=== PATIENT | female | born 1940 | race Caucasian/White ===

== ENCOUNTER → 2017-10-15 | Outpatient (CLI) | payer OTHER ==
[~2017-10-15] MED LIST: ALBU90OI6 INH; ALBU90OI61 INH; ALPR.5 PO; AMLO5 PO; ASPI81EC PO; Ativan0.5 MG PO; BACL10; BUPR150T2 PO; Budeprion Xl300 MG PO; CARAC 0.5% TOP; CARV3.125 PO; CIPRSO RIGHTEYE; CITA20 PO; CLON.2 PO; CYAN1000I IM; DOXA1 PO; Diclofenac Sod2.5 ML RIGHTEYE; ERGO50000 PO; ERYT.5TO RIGHTEYE; FLUSAL1005 IH; FLUT44OIA INH; FURO20 PO; GABA100 PO; HYDACE5 PO; HYDCHL12.5 PO; LISHYD2012 PO; LISI20 PO; LORA.5 PO; METF500 PO; METO50ER PO; NAPR220 PO; NIFE30ER PO; Norvasc5 MG PO; OMEP20ER PO; PRAM.125 PO; PRAM.5 PO; PRED1SU RIGHTEYE; TRAZ100 PO; TRIA80TC TOP; [UNRECOGNIZED DRUG - OTHER] PO
== END | disposition home or self-care (01) ==
LOC: LAB 17:26 → LAB SHORT 17:26
DX: R10.2 Pelvic and perineal pain (principal)
CPT/HCPCS: 87077; 87086; 87186

== ENCOUNTER → 2018-10-12 | Outpatient (CLI) | payer OTHER | LOC: PLD 08:15 → LAB SHORT 08:15 | DX: L57.0 Actinic keratosis (principal) | CPT/HCPCS: 88305 ==

== ENCOUNTER → 2019-01-08 | Outpatient (CLI) | payer OTHER | END | disposition home or self-care (01) | LOC: LAB EV 17:23 → LAB SHORT 17:23 | DX: N39.0 Urinary tract infection, site not specified (principal) | CPT/HCPCS: 87086 ==

== ENCOUNTER → 2020-04-25 | Outpatient (CLI) | payer MEDICARE ==
[~2020-04-25] MED LIST changes: +CHLO25B PO; +PANT20 PO
== END ==
LOC: LAB SHORT 15:00 → LAB SRC 15:00
DX: R30.0 Dysuria (principal)
CPT/HCPCS: 87077; 87086; 87186

== ENCOUNTER 2020-05-11 14:38 | Emergency (ER) | payer MEDICARE ==
[~2020-05-11] VITALS: Ht 157.5 cm; Wt 44.9 kg
[~2020-05-11 14:38] MED LIST changes: -CHLO25B PO; -PANT20 PO
[2020-05-11 15:32] LABS: BASOPHILS ABSOLUTE AUTO 0.04 K/mm3 (0.00-0.23); BASOPHILS PERCENT AUTO 1 % (0-2); EOSINOPHILS ABSOLUTE AUTO 0.18 K/mm3 (0.00-0.68); EOSINOPHILS PERCENT AUTO 2 % (0-6); Hematocrit 38.8 % (33.0-51.0); Hemoglobin 13.6 g/dL (11.5-16.0); IMMATURE GRAN ABSOLUTE AUTO 0.01 K/mm3 (0.00-0.10); IMMATURE GRAN PERCENT AUTO 0 % (0-1); LYMPHOCYTES ABSOLUTE AUTO 2.16 K/mm3 (0.84-5.20); LYMPHOCYTES PERCENT AUTO 29 % (21-46); MONOCYTES ABSOLUTE AUTO 0.56 K/mm3 (0.16-1.47); MONOCYTES PERCENT AUTO 8 % (4-13); Mean Corpuscular HGB 31.3 pg (26.0-34.0); Mean Corpuscular HGB Conc 35.1 g/dL (31.5-36.5); Mean Corpuscular Volume 89 fL (80-100); NEUTROPHILS ABSOLUTE AUTO 4.43 K/mm3 (1.96-9.15); NEUTROPHILS PERCENT AUTO 60 % (41-73); Platelet Count 317 K/mm3 (150-400); RDW Coefficient Variation 11.6 % (11.7-14.2); RDW Standard Deviation 38.2 fL (35.1-46.3); Red Blood Cell Count 4.34 M/mm3 (3.80-5.20); White Blood Cell Count 7.38 K/mm3 (4.00-11.30)
[2020-05-11 15:52] LABS: Alanine Aminotransfer (ALT/SGP 27 U/L (12-78); Albumin, Blood 3.9 g/dL (3.4-5.0); Albumin/Globulin Ratio 0.9 (0.8-1.8); Alk Phos 99 U/L (50-136); Anion Gap 6 mmol/L (6-16); Aspartate Aminotrans (AST/SGOT 21 U/L (12-37); Bilirubin, Total 0.7 mg/dL (0.1-1.0); Blood Urea Nitrogen 16 mg/dL (8-24); Bun/Creatinine Ratio 24.7 (12.0-20.0); CO2, Blood 28 mmol/L (21-32); Calcium, Blood 9.7 mg/dL (8.5-10.1); Chloride, Blood 95 mmol/L (98-108); Creatinine, Blood 0.65 mg/dL (0.40-1.00); Globulin, Blood 4.3 g/dL (2.2-4.0); Glomerular Filtration Rate >60 (60-); Glucose, Blood 90 mg/dL (70-99); Potassium, Blood 3.7 mmol/L (3.5-5.5); Sodium, Blood 129 mmol/L (136-145); Total Protein, Blood 8.2 g/dL (6.4-8.2); Troponin I <0.015 ng/mL (0.000-0.040)
[2020-05-11 18:30] LABS: Source, Urine Clean Catch
[2020-05-11] MEDS ORDERED: PANT20 PO (18:31)
[2020-05-11] MEDS ORDERED: CHLO25B PO (18:31)
[2020-05-11 18:34] LABS: Appearance, Urine Clear (Clear); Bilirubin, Urine Neg (Neg); Blood, Urine Neg (Neg); Color, Urine Yellow (P-Yellow); Glucose Qualitative, Urine Neg (Neg); Ketones, Urine Neg (Neg); Leukocyte Esterase, Urine 1+ (Neg); Nitrite, Urine Neg (Neg); Protein, Urine Neg (Neg); Urobilinogen, Urine NORM (Normal)
[2020-05-11 18:40] LABS: Bacteria Few /hpf; Red Blood Cells, Urine 0-2 /hpf (0-2); Squamous Epithelial Cells Not Seen /hpf (Few)
== END 2020-05-11 19:33 | disposition home or self-care (01) ==
LOC: ER 14:38
PROVIDERS: Physician Assistant; Student in an Organized Health Care Education/Training Program
DX: S09.90XA Unspecified injury of head, initial encounter (principal); I10 Essential (primary) hypertension; J44.9 Chronic obstructive pulmonary disease, unspecified; K21.9 Gastro-esophageal reflux disease without esophagitis; Z91.011 Allergy to milk products; Z88.8 Allergy status to other drugs, medicaments and biological substances; Z79.899 Other long term (current) drug therapy; Z87.891 Personal history of nicotine dependence; W18.30XA Fall on same level, unspecified, initial encounter
CPT/HCPCS: 36415; 70450; 71046; 80053; 81001; 84484; 85025; 87086; 93005; 93010; 99284-25

== ENCOUNTER → 2020-12-04 | Outpatient (CLI) | payer MEDICARE ==
[~2020-12-04] MED LIST changes: +CHLO25B PO; +PANT20 PO
[2020-12-04 14:17] LABS: BASOPHILS ABSOLUTE AUTO 0.06 K/mm3 (0.00-0.23); BASOPHILS PERCENT AUTO 1 % (0-2); EOSINOPHILS ABSOLUTE AUTO 0.09 K/mm3 (0.00-0.68); EOSINOPHILS PERCENT AUTO 1 % (0-6); Hematocrit 39.4 % (33.0-51.0); Hemoglobin 14.2 g/dL (11.5-16.0); IMMATURE GRAN ABSOLUTE AUTO 0.02 K/mm3 (0.00-0.10); IMMATURE GRAN PERCENT AUTO 0 % (0-1); LYMPHOCYTES ABSOLUTE AUTO 1.85 K/mm3 (0.84-5.20); LYMPHOCYTES PERCENT AUTO 22 % (21-46); MONOCYTES PERCENT AUTO 7 % (4-13); Mean Corpuscular HGB 32.5 pg (26.0-34.0); Mean Corpuscular Volume 90 fL (80-100); Mean Platelet Volume 8.7 fL (9.1-12.4); NEUTROPHILS ABSOLUTE AUTO 5.83 K/mm3 (1.96-9.15); NEUTROPHILS PERCENT AUTO 69 % (41-73); Platelet Count 370 K/mm3 (150-400); RDW Coefficient Variation 11.6 % (11.7-14.2); Red Blood Cell Count 4.37 M/mm3 (3.80-5.20); White Blood Cell Count 8.45 K/mm3 (4.00-11.30)
[2020-12-04 14:22] LABS: Anion Gap 9 mmol/L (6-16); Blood Urea Nitrogen 15 mg/dL (8-24); Bun/Creatinine Ratio 17.2 (12.0-20.0); CO2, Blood 26 mmol/L (21-32); Calcium, Blood 9.9 mg/dL (8.5-10.1); Chloride, Blood 92 mmol/L (98-108); Creatinine, Blood 0.87 mg/dL (0.40-1.00); Glomerular Filtration Rate >60 (60-); Glucose, Blood 102 mg/dL (70-99); Potassium, Blood 5.2 mmol/L (3.5-5.5); Sodium, Blood 127 mmol/L (136-145)
== END | disposition home or self-care (01) ==
LOC: LAB SHORT 14:12
PROVIDERS: Family Medicine
DX: R10.9 Unspecified abdominal pain (principal)
CPT/HCPCS: 80048; 85025; 87086

== ENCOUNTER → 2020-12-28 | Outpatient (CLI) | payer MEDICARE, OTHER ==
[2020-12-28 18:57] LABS: Source, Urine Clean Catch
[2020-12-28 19:22] LABS: Appearance, Urine Clear (Clear); Bilirubin, Urine Neg (Neg); Blood, Urine Neg (Neg); Color, Urine Yellow (P-Yellow); Glucose Qualitative, Urine Neg (Neg); Ketones, Urine Neg (Neg); Leukocyte Esterase, Urine Neg (Neg); Nitrite, Urine Neg (Neg); Protein, Urine Neg (Neg); Specific Gravity, Urine 1.015 (1.003-1.022); Urobilinogen, Urine NORM (Normal)
== END ==
LOC: LAB SHORT 18:07 → LAB 18:07
PROVIDERS: Nurse Practitioner Family
DX: R07.81 Pleurodynia (principal); R29.898 Other symptoms and signs involving the musculoskeletal system; R35.0 Frequency of micturition
CPT/HCPCS: 81003; 87086

== ENCOUNTER 2021-07-10 09:08 | Inpatient (IN) | payer MEDICARE, OTHER ==
[~2021-07-10] VITALS: Ht 157.5 cm; Wt 61.2 kg
[~2021-07-10 09:08] MED LIST changes: +ALBU90OI INH; +Aspir 8181 MG PO; +IRBE150 PO; +MIRAPEX ER0.75 MG PO; +NITR.4SL SL; +PRED20 PO; +SPIR25 PO; +SULTRIDS PO
[2021-07-10 09:45] LABS: BASOPHILS ABSOLUTE AUTO 0.06 K/mm3 (0.00-0.23); BASOPHILS PERCENT AUTO 1 % (0-2); EOSINOPHILS ABSOLUTE AUTO 0.21 K/mm3 (0.00-0.68); EOSINOPHILS PERCENT AUTO 3 % (0-6); Hematocrit 36.1 % (33.0-51.0); Hemoglobin 12.5 g/dL (11.5-16.0); IMMATURE GRAN ABSOLUTE AUTO 0.02 K/mm3 (0.00-0.10); IMMATURE GRAN PERCENT AUTO 0 % (0-1); LYMPHOCYTES PERCENT AUTO 36 % (21-46); MONOCYTES ABSOLUTE AUTO 0.55 K/mm3 (0.16-1.47); MONOCYTES PERCENT AUTO 9 % (4-13); Mean Corpuscular HGB 30.7 pg (26.0-34.0); Mean Corpuscular HGB Conc 34.6 g/dL (31.5-36.5); Mean Corpuscular Volume 89 fL (80-100); Mean Platelet Volume 8.7 fL (9.1-12.4); NEUTROPHILS ABSOLUTE AUTO 3.05 K/mm3 (1.96-9.15); NEUTROPHILS PERCENT AUTO 50 % (41-73); Platelet Count 323 K/mm3 (150-400); RDW Coefficient Variation 13.8 % (11.7-14.2); RDW Standard Deviation 44.7 fL (35.1-46.3); Red Blood Cell Count 4.07 M/mm3 (3.80-5.20); White Blood Cell Count 6.09 K/mm3 (4.00-11.30)
[2021-07-10 10:05] LABS: Albumin, Blood 3.2 g/dL (3.4-5.0); Albumin/Globulin Ratio 0.8 (0.8-1.8); Bilirubin, Total 0.7 mg/dL (0.1-1.0); Bun/Creatinine Ratio 26.2 (12.0-20.0); Creatinine, Blood 0.57 mg/dL (0.40-1.00); Globulin, Blood 4.1 g/dL (2.2-4.0); Potassium, Blood 5.6 mmol/L (3.5-5.5); Total Protein, Blood 7.3 g/dL (6.4-8.2)
[2021-07-10 14:08] LABS: Source, Urine Clean Catch
[2021-07-10 14:21] LABS: Appearance, Urine Clear (Clear); Bilirubin, Urine Neg (Neg); Blood, Urine Neg (Neg); Glucose Qualitative, Urine Neg (Neg); Ketones, Urine Neg (Neg); Leukocyte Esterase, Urine Neg (Neg); Nitrite, Urine Neg (Neg); Protein, Urine Neg (Neg); Specific Gravity, Urine 1.005 (1.003-1.022); Urobilinogen, Urine NORM (Normal)
[2021-07-10 14:27] LABS: Color, Urine Pale Yellow (P-Yellow)
--- NOTE | 2021-07-10 15:47 | NUR ---
ARRIVAL TO UNIT PT ARRIVED TO UNIT FROM ER VIA [facility], PT ABLE TO TRANSFER SELF FROM [facility] AND AMBULATE TO BATHROOM. AMBULATES WELL WITH MINIMAL WEAKNESS. VITAL SIGNS TAKEN BP ELEVATED, PRN HYDRALAZINE GIVEN. PT REPORTS HIGHLY FLUCUATING BLOOD PRESSURE AT HOME. PHYSICAL THERAPY IN ROOM TO SEE PATIENT. PT REPORTS FEELING FATIGUED BUT OTHERWISE GOOD.
--- NOTE | 2021-07-10 17:31 | NUR ---
NO ACUTE CHANGES SINCE ARRIVAL TO FLOOR. PT AMBULATES WELL TO RESTROOM WITH SBY ASSIST.
--- NOTE | 2021-07-10 18:08 | NUR ---
SHIFT SUMMARY: STUDENT NURSE PT HAVING EPISODES OF DIARRHEA, C/O STOMACH CRAMPS. NO N/V. ABLE TO TRANSFER HERSELF WITH 1 PERSON ASSIST. SHE STATES SHE FEELS WEAK WHEN WALKING. HAD NOT EATEN ANYTHING UNTIL 1600.
[2021-07-10] MEDS ORDERED: NEBIVOLOL HCL2.5 MG PO ×2 (20:56)
[2021-07-10] MEDS ORDERED: ZOLOFT25 MG PO ×2 (20:57)
[2021-07-11 07:42] LABS: Bun/Creatinine Ratio 18.7 (12.0-20.0); Calcium, Blood 8.7 mg/dL (8.5-10.1); Creatinine, Blood 0.59 mg/dL (0.40-1.00); Potassium, Blood 4.3 mmol/L (3.5-5.5)
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
[2021-07-12 05:11] LABS: Bun/Creatinine Ratio 12.2 (12.0-20.0); Calcium, Blood 8.2 mg/dL (8.5-10.1); Creatinine, Blood 0.66 mg/dL (0.40-1.00)
--- NOTE | 2021-07-12 05:16 | NUR ---
SHIFT SUMMARY PATIENT ALERT AND ORIENTED. HAD NO COMPLAINTS OF PAIN OR SHORTNESS OF BREATH. NO ACUTE ISSUES NOTED OVERNIGHT. CALL LIGHT WITHIN REACH. REPORT GIVEN TO ONCOMING RN.
--- NOTE | 2021-07-12 09:24 | NUR ---
pt sitting on the side of the bed eating breakfast, a/ox3, pleasant and cooperative with care, follows commands well, denies pain, when asked if she feels like she's improving she replies they tell me I am, states she is still a bit weak, but is hoping to go home today, lungs are mildly course t/o, resp even and unlabored, she reports a productive occ cough but swallows it, on r/a at this time, but is a home 02 user prn, hrr, tele in place running sr per monitor, see strip, no edema noted, ppp+2, cap refill <3sec, vs stable, afebrile, iv site to lac infusing ns as ordered, site is clear, btx4, abd flat soft nontender, voids without diff, skin c/w/d, maew, bridger, call light in reach.
--- NOTE | 2021-07-12 12:51 | NUR ---
PT HAS BEEN DISCHARGED TO HOME, SHE STATES RIDE WONT BE HERE UNTIL 1400, IV REMOVED INTACT, WENT OVER INSTRUCTIONS WITH HER, SHE VERBALIZED UNDERSTANDING, NO NEW MEDS TO CALL IN. CALL LIGHT IN REACH.
--- NOTE | 2021-07-12 13:45 | NUR ---
Pt ride here, left via wheelchair with admissions rn in attendence, pt has all her belongings.
== END 2021-07-12 16:00 | disposition home health service (06) | DRG 641 ==
LOC: ER 09:08 → MEDS 09:09 → ER 09:09 → MEDS 09:09
PROVIDERS: Emergency Medicine; ADMIT Internal Medicine
DX: E87.1 Hypo-osmolality and hyponatremia (principal); J84.9 Interstitial pulmonary disease, unspecified; J96.11 Chronic respiratory failure with hypoxia; E44.1 Mild protein-calorie malnutrition; E87.5 Hyperkalemia; E87.8 Other disorders of electrolyte and fluid balance, not elsewhere classified; E86.0 Dehydration; I10 Essential (primary) hypertension; R63.4 Abnormal weight loss; R63.0 Anorexia; M79.7 Fibromyalgia; K21.9 Gastro-esophageal reflux disease without esophagitis; G25.81 Restless legs syndrome; J44.9 Chronic obstructive pulmonary disease, unspecified; F41.9 Anxiety disorder, unspecified; Z85.3 Personal history of malignant neoplasm of breast; Z99.81 Dependence on supplemental oxygen; Z79.82 Long term (current) use of aspirin; Z79.51 Long term (current) use of inhaled steroids; Z79.899 Other long term (current) drug therapy; Z91.011 Allergy to milk products; Z88.8 Allergy status to other drugs, medicaments and biological substances; Z68.24 Body mass index [BMI] 24.0-24.9, adult; T50.0X5A Adverse effect of mineralocorticoids and their antagonists, initial encounter
CPT/HCPCS: 36415; 74177; 80048; 80053; 81003; 85025; 93005; 93010; 94760; 96361; 96372; 96374; 97110; 97116; 97116-CQ; 97161; 97165; 97530; 97530-CQ; 99284-25; A9270; G0378; J0360; J1650; J7030; Q9967

== ENCOUNTER → 2021-07-24 | Outpatient (CLI) | payer MEDICARE, OTHER ==
[~2021-07-24] MED LIST changes: +NEBIVOLOL HCL2.5 MG PO; +ZOLOFT25 MG PO
[2021-07-24 15:28] LABS: Creatinine, Blood 0.73 mg/dL (0.40-1.00); Potassium, Blood 4.5 mmol/L (3.5-5.5)
== END ==
LOC: LAB SHORT 11:17
PROVIDERS: Nurse Practitioner Family
DX: E87.1 Hypo-osmolality and hyponatremia (principal)
CPT/HCPCS: 80048

== ENCOUNTER → 2021-08-01 | Outpatient (CLI) | payer MEDICARE, OTHER ==
[2021-08-01 13:39] LABS: Bun/Creatinine Ratio 16.3 (12.0-20.0); Calcium, Blood 9.5 mg/dL (8.5-10.1); Creatinine, Blood 0.61 mg/dL (0.40-1.00); Potassium, Blood 4.8 mmol/L (3.5-5.5)
== END | disposition home or self-care (01) ==
LOC: LAB SHORT 10:55
PROVIDERS: Nurse Practitioner Family
DX: E87.1 Hypo-osmolality and hyponatremia (principal)
CPT/HCPCS: 80048; 83930; 83935

== ENCOUNTER 2022-12-27 16:17 | Observation (INO) | payer MEDICARE, OTHER ==
[~2022-12-27] VITALS: Ht 157.5 cm; Wt 52.2 kg
[~2022-12-27 16:17] MED LIST changes: +CALCA500S6; +ERGO400; +FURO20; +LOPE2C
[2022-12-27 16:38] LABS: BASOPHILS ABSOLUTE AUTO 0.05 K/mm3 (0.00-0.23); BASOPHILS PERCENT AUTO 1 % (0-2); EOSINOPHILS ABSOLUTE AUTO 0.12 K/mm3 (0.00-0.68); EOSINOPHILS PERCENT AUTO 1 % (0-6); Hematocrit 37.2 % (33.0-51.0); Hemoglobin 12.8 g/dL (11.5-16.0); IMMATURE GRAN ABSOLUTE AUTO 0.05 K/mm3 (0.00-0.10); IMMATURE GRAN PERCENT AUTO 1 % (0-1); LYMPHOCYTES ABSOLUTE AUTO 2.55 K/mm3 (0.84-5.20); LYMPHOCYTES PERCENT AUTO 28 % (21-46); MONOCYTES ABSOLUTE AUTO 0.45 K/mm3 (0.16-1.47); MONOCYTES PERCENT AUTO 5 % (4-13); Mean Corpuscular HGB 31.4 pg (26.0-34.0); Mean Corpuscular HGB Conc 34.4 g/dL (31.5-36.5); Mean Corpuscular Volume 91 fL (80-100); Mean Platelet Volume 9.4 fL (9.1-12.4); NEUTROPHILS ABSOLUTE AUTO 5.76 K/mm3 (1.96-9.15); NEUTROPHILS PERCENT AUTO 64 % (41-73); Platelet Count 266 K/mm3 (150-400); RDW Standard Deviation 40.4 fL (35.1-46.3); Red Blood Cell Count 4.08 M/mm3 (3.80-5.20); White Blood Cell Count 8.98 K/mm3 (4.00-11.30)
[2022-12-27 16:53] LABS: Prothrombin Time Results 10.5 Sec (9.7-11.5)
[2022-12-27 17:12] LABS: Alanine Aminotransfer (ALT/SGP 25 U/L (12-78); Albumin, Blood 3.5 g/dL (3.4-5.0); Albumin/Globulin Ratio 0.8 (0.8-1.8); Alk Phos 108 U/L (50-136); Anion Gap 6 mmol/L (6-16); Aspartate Aminotrans (AST/SGOT 32 U/L (12-37); Bilirubin, Total 0.5 mg/dL (0.1-1.0); Blood Urea Nitrogen 16 mg/dL (8-24); Bun/Creatinine Ratio 27.1 (12.0-20.0); CO2, Blood 27 mmol/L (21-32); Chloride, Blood 100 mmol/L (98-108); Creatinine, Blood 0.59 mg/dL (0.40-1.00); Ethanol (Alcohol), Blood, Med <3 mg/dL; Globulin, Blood 4.4 g/dL (2.2-4.0); Glomerular Filtration Rate 90 (60-); Glucose, Blood 153 mg/dL (70-99); Potassium, Blood 4.2 mmol/L (3.5-5.5); Sodium, Blood 133 mmol/L (136-145); Total Protein, Blood 7.9 g/dL (6.4-8.2)
[2022-12-27 21:15] VITALS: BP 128/74
[2022-12-28 03:42] VITALS: BP 144/89
--- NOTE | 2022-12-28 06:21 | NUR ---
SHIFT SUMMARY PT ALERT & ORIENTED, COOPERATIVE WITH CARE. PAIN CONTROLLED WITH PERCOCET X 2 OVERNIGHT. LUNGS CLEAR, ABD SOFT, VOIDING PER BEDPAN. PIV PATENT WITH MAINTENANCE IVF. PO FLUIDS WELL. SOME BRUISING TO RT RIB FRACTURE AREA, WITH LACERATION BELOW RT KNEE. DEVELOPED FURTHER HEMATOMA TO RT EYE THIS AM, WITH SOME SWELLING. PUPILS REACTIVE, NO C/O EYE PAIN. COMMUNICATING WITH SON BY PHONE TO DISCHARGE ASSISTANCE.
[2022-12-28 07:10] VITALS: BP 141/97
[2022-12-28 14:24] VITALS: BP 139/79
--- NOTE | 2022-12-28 17:17 | NUR ---
SHIFT SUMMARY PATIENT IS AOX4, ABLE TO WORK WITH PT TODAY SAT AT [facility]. ORTHOTIC BRACE WAS FITTED THIS AFTERNOON PATIENT IS MORE COMFORTABLE WITH BRACE ON. CONT. PULSE OX IN PLACE, SATS ABOVE 90% ON RA. ENCOURAGED IS AND COUGHING. PATIENT HAVING PAIN IN NECK, AND R KNEE, MEDICATED PER EMAR. ABLE TO TOLERATE PO INTAKE AND VOID USING BEDPAN. R EYE AND FOREHEAD WITH HEMATOMA AND SWELLING ICE PACK TO EYE. BANDAGE PLACED TO R EAR FOR SMALL LAC. PATIENT FAMILY IN ROOM FOR COMFORT. PATIENT HAS SOME BOUGHTS OF SOB 02 PRN. ENCOURAGED DEEP BREATHE AND COUGHING. CALL LIGHT IN REACH ABLE TO MAKE NEEDS KNOWN.
[2022-12-28 20:05] VITALS: BP 134/82
[2022-12-29 04:55] VITALS: BP 184/85
[2022-12-29 05:28] VITALS: BP 175/92
--- NOTE | 2022-12-29 06:24 | NUR ---
SHIFT SUMMARY ALERT O X4, SOME PAIN WITH MOVEMENT, RELIEVED BY ANALGESIC AND USE OF BRACE. BP HIGH IN EARLY AM, GIVEN APRESOLINE, RESOLED TO ACCEPTABLE VALUE. MAINTAINED ON CONTINUOUS PULSE OXIMETRY OVERNIGHT, NO CONCERNS. AIR ENTRY ADEQUATE THROUGHOUT LUNG DREW. USING IS WHEN AWAKE. PO WELL, ABD SOFT, BS ACTIVE, PASSING FLATUS. VOIDING WELL. RT EYE HEMATOMA SLIGHTLY EXPANDED, WITH CONTINUED SWELLING.
[2022-12-29 07:13] VITALS: BP 154/83
[2022-12-29 10:47] LABS: BASOPHILS ABSOLUTE AUTO 0.05 K/mm3 (0.00-0.23); BASOPHILS PERCENT AUTO 1 % (0-2); EOSINOPHILS ABSOLUTE AUTO 0.17 K/mm3 (0.00-0.68); EOSINOPHILS PERCENT AUTO 2 % (0-6); Hematocrit 37.8 % (33.0-51.0); Hemoglobin 13.2 g/dL (11.5-16.0); IMMATURE GRAN ABSOLUTE AUTO 0.03 K/mm3 (0.00-0.10); IMMATURE GRAN PERCENT AUTO 0 % (0-1); LYMPHOCYTES ABSOLUTE AUTO 1.27 K/mm3 (0.84-5.20); LYMPHOCYTES PERCENT AUTO 13 % (21-46); MONOCYTES ABSOLUTE AUTO 0.75 K/mm3 (0.16-1.47); MONOCYTES PERCENT AUTO 8 % (4-13); Mean Corpuscular HGB 31.7 pg (26.0-34.0); Mean Corpuscular HGB Conc 34.9 g/dL (31.5-36.5); Mean Corpuscular Volume 91 fL (80-100); Mean Platelet Volume 9.4 fL (9.1-12.4); NEUTROPHILS ABSOLUTE AUTO 7.47 K/mm3 (1.96-9.15); NEUTROPHILS PERCENT AUTO 77 % (41-73); Platelet Count 280 K/mm3 (150-400); RDW Standard Deviation 39.8 fL (35.1-46.3); Red Blood Cell Count 4.17 M/mm3 (3.80-5.20); White Blood Cell Count 9.74 K/mm3 (4.00-11.30)
[2022-12-29 11:00] LABS: Bun/Creatinine Ratio 31.8 (12.0-20.0); Creatinine, Blood 0.6 mg/dL (0.40-1.00); Potassium, Blood 3.5 mmol/L (3.5-5.5)
[2022-12-29 16:13] VITALS: BP 164/86
--- NOTE | 2022-12-29 18:14 | NUR ---
SHIFT SUMMARY PATIENT AOX4. BACK BRACE IN PLACE FOR FREE MOVEMENT OUT OF BED. PATIENT HAD SHOWER IN BATHROOM, IS 1 PERSON FWW, GB TOELRATED WALK TO BATHROOM AND BACK TO CHAIR. PATIENT HAS SWELLING AND BRUISING TO BOTH EYES AND R SIDE FOREHEAD. FAMILY IN THROUGHOUT THE DAY. REPEAT SPINAL XRAY DONE. PLANS FOR THERAPY TOMORROW AND POSSIBLE DISCHARGE. VSS, CALL LIGHT IN REACH MEDICATED WITH PO PAIN PILL AND TOLERATING WELL.
[2022-12-29 19:15] VITALS: BP 164/73
[2022-12-30 04:39] VITALS: BP 153/87
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
[2022-12-30 07:02] VITALS: BP 159/92
[2022-12-30 10:15] LABS: BASOPHILS ABSOLUTE AUTO 0.03 K/mm3 (0.00-0.23); BASOPHILS PERCENT AUTO 0 % (0-2); EOSINOPHILS ABSOLUTE AUTO 0.19 K/mm3 (0.00-0.68); EOSINOPHILS PERCENT AUTO 2 % (0-6); IMMATURE GRAN ABSOLUTE AUTO 0.02 K/mm3 (0.00-0.10); IMMATURE GRAN PERCENT AUTO 0 % (0-1); LYMPHOCYTES ABSOLUTE AUTO 1.06 K/mm3 (0.84-5.20); LYMPHOCYTES PERCENT AUTO 12 % (21-46); MONOCYTES ABSOLUTE AUTO 0.88 K/mm3 (0.16-1.47); MONOCYTES PERCENT AUTO 10 % (4-13); Mean Corpuscular HGB 31.6 pg (26.0-34.0); Mean Corpuscular HGB Conc 35.1 g/dL (31.5-36.5); Mean Corpuscular Volume 90 fL (80-100); Mean Platelet Volume 9.5 fL (9.1-12.4); NEUTROPHILS ABSOLUTE AUTO 6.65 K/mm3 (1.96-9.15); NEUTROPHILS PERCENT AUTO 75 % (41-73); Platelet Count 266 K/mm3 (150-400); RDW Coefficient Variation 11.9 % (11.7-14.2); Red Blood Cell Count 4.12 M/mm3 (3.80-5.20); White Blood Cell Count 8.83 K/mm3 (4.00-11.30)
[2022-12-30 10:33] LABS: Bun/Creatinine Ratio 22.8 (12.0-20.0); Creatinine, Blood 0.61 mg/dL (0.40-1.00)
--- NOTE | 2022-12-30 17:33 | NUR ---
SHIFT SUMMARY PT AOX4, VSS/RA, ARYAN PO, VOIDING, AMB SBA TO BRP/UP TO CHAIR/REPOSITIONS SELF, WORE BRACE T/O SHIFT, PAIN MANAGED WITH PERCOCET. WILL REPORT TO ONCOMING NOC RN.
[2022-12-30 17:42] VITALS: BP 127/71
[2022-12-30 19:59] VITALS: BP 143/80
[2022-12-31 02:36] VITALS: BP 124/67
[2022-12-31 07:23] VITALS: BP 169/80
--- NOTE | 2022-12-31 07:36 | NUR ---
SHIFT SUMMARY NO ACUTE CHANGES NOTED THROUGH THE NIGHT, PT REMAINS A&O X4, ON RA, VSS, TOLERATING PO INTAKE, VOIDING WNL, SBA W/FWW TO THE BATHROOM. BACK BRACE WAS LEFT ON DURING THE NIGHT, PT STATES SHE WOULD LIKE THE MD TO REVIEW XRAY OF HER NECK, SHE FEELS SHE NEEDS TO SUPPORT IT MORE THAN BEFORE, PAIN MANAGED WITH 1 PERCOCET Q4 HRS PRN, PT IS UP WATCHING TV THIS AM, REPORT GIVEN TO HENRIQUE WALTERS AT BEDSIDE, CALL LIGHT IN REACH
[2022-12-31 09:27] LABS: BASOPHILS ABSOLUTE AUTO 0.03 K/mm3 (0.00-0.23); BASOPHILS PERCENT AUTO 0 % (0-2); EOSINOPHILS ABSOLUTE AUTO 0.23 K/mm3 (0.00-0.68); EOSINOPHILS PERCENT AUTO 3 % (0-6); Hematocrit 36.8 % (33.0-51.0); Hemoglobin 12.8 g/dL (11.5-16.0); IMMATURE GRAN ABSOLUTE AUTO 0.02 K/mm3 (0.00-0.10); IMMATURE GRAN PERCENT AUTO 0 % (0-1); LYMPHOCYTES ABSOLUTE AUTO 1.37 K/mm3 (0.84-5.20); LYMPHOCYTES PERCENT AUTO 18 % (21-46); MONOCYTES ABSOLUTE AUTO 0.85 K/mm3 (0.16-1.47); MONOCYTES PERCENT AUTO 11 % (4-13); Mean Corpuscular HGB 31.2 pg (26.0-34.0); Mean Corpuscular HGB Conc 34.8 g/dL (31.5-36.5); Mean Corpuscular Volume 90 fL (80-100); Mean Platelet Volume 9.7 fL (9.1-12.4); NEUTROPHILS ABSOLUTE AUTO 5.26 K/mm3 (1.96-9.15); NEUTROPHILS PERCENT AUTO 68 % (41-73); Platelet Count 282 K/mm3 (150-400); RDW Coefficient Variation 11.9 % (11.7-14.2); RDW Standard Deviation 39.2 fL (35.1-46.3); White Blood Cell Count 7.76 K/mm3 (4.00-11.30)
[2022-12-31 10:09] LABS: Albumin, Blood 3.3 g/dL (3.4-5.0); Albumin/Globulin Ratio 0.7 (0.8-1.8); Bilirubin, Total 0.8 mg/dL (0.1-1.0); Bun/Creatinine Ratio 28.4 (12.0-20.0); Calcium, Blood 8.8 mg/dL (8.5-10.1); Creatinine, Blood 0.6 mg/dL (0.40-1.00); Globulin, Blood 4.5 g/dL (2.2-4.0); Potassium, Blood 4.1 mmol/L (3.5-5.5); Total Protein, Blood 7.8 g/dL (6.4-8.2)
[2022-12-31 14:29] VITALS: BP 126/71
[2022-12-31] MEDS ORDERED: Acetaminophen650 M1 PO (15:31)
[2022-12-31] MEDS ORDERED: Percocet 5-3251 EACH PO (15:31)
[2022-12-31 17:10] VITALS: BP 142/82
--- NOTE | 2022-12-31 17:25 | NUR ---
REPORT CALLED TO BRUCE MALDONADO.
--- NOTE | 2022-12-31 17:33 | NUR ---
PT DISCHARGED TO [facility]. PT LEFT UNIT IN , ACCOMPANIED BY VIJI CAMPUZANO WHO WAS GIVEN DISCHARGE PACKET. SON ESCORTING PATIENT AND HAD ALL PATIENT'S POSSESSIONS IN HAND.
== END 2022-12-31 17:32 ==
LOC: ER 16:17 → SURS 16:18
PROVIDERS: Family Medicine; Internal Medicine; Student in an Organized Health Care Education/Training Program; ADMIT Surgery
DX: S22.079A Unspecified fracture of T9-T10 vertebra, initial encounter for closed fracture (principal); S12.600A Unspecified displaced fracture of seventh cervical vertebra, initial encounter for closed fracture; S22.31XA Fracture of one rib, right side, initial encounter for closed fracture; J44.9 Chronic obstructive pulmonary disease, unspecified; F32.A Depression, unspecified; K21.9 Gastro-esophageal reflux disease without esophagitis; I13.0 Hypertensive heart and chronic kidney disease with heart failure and stage 1 through stage 4 chronic kidney disease, or unspecified chronic kidney disease; N18.30 Chronic kidney disease, stage 3 unspecified; I50.9 Heart failure, unspecified; J84.9 Interstitial pulmonary disease, unspecified; Z66 Do not resuscitate; Z87.891 Personal history of nicotine dependence; V49.9XXA Car occupant (driver) (passenger) injured in unspecified traffic accident, initial encounter
CPT/HCPCS: 36415; 70450; 70498; 71260; 72070; 72125; 72128; 73562-RT; 73590; 74177; 80048; 80053; 83930; 83935; 84300; 85025; 85610; 93005; 93010; 94760; 94762; 96372; 96374-59; 96375; 97110; 97116; 97161; 97530; 99285-25; A9270; G0378; J0360; J1170; J1650; J1885; J3010; J7120; Q9967

== ENCOUNTER 2024-05-21 06:57 | Day surgery (SDC) | payer OTHER ==
[~2024-05-21] VITALS: Ht 152.4 cm; Wt 48.2 kg
[~2024-05-21 06:57] MED LIST changes: +Acetaminophen650 M1 PO; +Percocet 5-3251 EACH PO
[2024-05-21] MEDS ORDERED: MELATONIN5 M1 (07:43)
[2024-05-21] MEDS ORDERED: PANT20 (07:44)
[2024-05-21] MEDS ORDERED: BICARSIM FORTE125 MG (07:44)
[2024-05-21] MEDS ORDERED: CENTRUM SILVER1 EAC2 (07:44)
[2024-05-21] MEDS ORDERED: Lactated Ringer's 1,000 ML IV ONE ×2 (07:47→08:05)
[2024-05-21] MEDS ORDERED: propofoL 50 ML IV ONE (08:14)
--- NOTE | 2024-05-21 08:53 | NUR ---
05/21/24 0853 Karel Taveras 54,56
[2024-05-21] MEDS ORDERED: ePHEDrine Sulfate 50 MG/ML 1ML Injection ONE (09:07)
[2024-05-21 09:54] VITALS: BP 98/67
== END 2024-05-21 09:59 | disposition home or self-care (01) ==
LOC: ORSCSDS 06:57
PROVIDERS: Internal Medicine Gastroenterology
PROC: 0DBE8ZX Excision of Large Intestine, Via Natural or Artificial Opening Endoscopic, Diagnostic (ICD-10-PCS; principal; 2024-05-21 08:15)
PROC: 0DB58ZX Excision of Esophagus, Via Natural or Artificial Opening Endoscopic, Diagnostic (ICD-10-PCS; principal; 2024-05-21 08:15)
PROC: 0DB78ZX Excision of Stomach, Pylorus, Via Natural or Artificial Opening Endoscopic, Diagnostic (ICD-10-PCS; principal; 2024-05-21 08:15)
PROC: 0DB98ZX Excision of Duodenum, Via Natural or Artificial Opening Endoscopic, Diagnostic (ICD-10-PCS; principal; 2024-05-21 08:15)
PROC: 0D758ZZ Dilation of Esophagus, Via Natural or Artificial Opening Endoscopic (ICD-10-PCS; principal; 2024-05-21 08:15)
DX: K22.70 Barrett's esophagus without dysplasia (principal); K21.9 Gastro-esophageal reflux disease without esophagitis; R19.4 Change in bowel habit; R19.7 Diarrhea, unspecified; R13.10 Dysphagia, unspecified; K31.7 Polyp of stomach and duodenum; K44.9 Diaphragmatic hernia without obstruction or gangrene; I25.10 Atherosclerotic heart disease of native coronary artery without angina pectoris; I50.9 Heart failure, unspecified; Z99.81 Dependence on supplemental oxygen; J44.9 Chronic obstructive pulmonary disease, unspecified; I12.9 Hypertensive chronic kidney disease with stage 1 through stage 4 chronic kidney disease, or unspecified chronic kidney disease; N18.30 Chronic kidney disease, stage 3 unspecified; Z79.899 Other long term (current) drug therapy
CPT/HCPCS: 88305; 88342; C1726; J2704; J7120

== ENCOUNTER 2024-09-06 18:24 | Observation (INO) | payer MEDICARE ==
[~2024-09-06] VITALS: Ht 157.5 cm; Wt 42.8 kg
[~2024-09-06 18:24] MED LIST changes: +BICARSIM FORTE125 MG; +CENTRUM SILVER1 EAC2; +MELATONIN5 M1; +PANT20
[2024-09-06 19:40] LABS: Source, Urine Clean Catch
[2024-09-06 19:43] LABS: Bilirubin, Urine Neg (Neg); Glucose Qualitative, Urine Neg (Neg); Ketones, Urine Neg (Neg); Leukocyte Esterase, Urine Neg (Neg); Protein, Urine Neg (Neg); Specific Gravity, Urine 1.010 (1.003-1.022); Urobilinogen, Urine NORM (Normal)
[2024-09-06 19:50] LABS: Color, Urine Pale Yellow (P-Yellow)
[2024-09-06 19:59] LABS: U Amphetamine Screen Not Detected; U Barbituate Screen Not Detected; U Benzodiazapine Screen Not Detected; U Buprenorphine Screen Not Detected; U Cannabinoids Screen Not Detected; U Cocaine Screen Not Detected; U Methadone Screen Not Detected; U Methamphetamine Screen Not Detected; U Opiates Screen Not Detected; U Oxycodone Screen Not Detected; U Phencyclidine Screen Not Detected
[2024-09-06 20:20] LABS: BASOPHILS ABSOLUTE AUTO 0.03 K/mm3 (0.00-0.23); BASOPHILS PERCENT AUTO 1 % (0-2); EOSINOPHILS ABSOLUTE AUTO 0.08 K/mm3 (0.00-0.68); EOSINOPHILS PERCENT AUTO 1 % (0-6); Hematocrit 34.9 % (33.0-51.0); Hemoglobin 12.0 g/dL (11.5-16.0); IMMATURE GRAN ABSOLUTE AUTO 0.02 K/mm3 (0.00-0.10); IMMATURE GRAN PERCENT AUTO 0 % (0-1); LYMPHOCYTES ABSOLUTE AUTO 1.54 K/mm3 (0.84-5.20); LYMPHOCYTES PERCENT AUTO 25 % (21-46); MONOCYTES ABSOLUTE AUTO 0.51 K/mm3 (0.16-1.47); MONOCYTES PERCENT AUTO 8 % (4-13); Mean Corpuscular HGB Conc 34.4 g/dL (31.5-36.5); Mean Corpuscular Volume 94 fL (80-100); NEUTROPHILS ABSOLUTE AUTO 4.02 K/mm3 (1.96-9.15); NEUTROPHILS PERCENT AUTO 65 % (41-73); NRBC ABSOLUTE 0.00 K/mm3 (0.00-0.02); NRBC Auto 0.0 /100 WBC (0.0-0.2); Platelet Count 259 K/mm3 (150-400); RDW Coefficient Variation 12.1 % (11.7-14.2); RDW Standard Deviation 42.0 fL (35.1-46.3)
[2024-09-06 20:32] LABS: Ethanol (Alcohol), Blood, Med <3 mg/dL
[2024-09-06 20:45] LABS: Alanine Aminotransfer (ALT/SGP 20 U/L (12-78); Albumin, Blood 3.1 g/dL (3.4-5.0); Albumin/Globulin Ratio 0.7 (0.8-1.8); Anion Gap 6 mmol/L (3-11); Aspartate Aminotrans (AST/SGOT 47 U/L (12-37); Bilirubin, Total 0.8 mg/dL (0.1-1.0); Blood Urea Nitrogen 14 mg/dL (8-24); CO2, Blood 29 mmol/L (21-32); Calcium, Blood 8.2 mg/dL (8.5-10.1); Chloride, Blood 96 mmol/L (98-108); Creatinine, Blood 0.49 mg/dL (0.40-1.00); Globulin, Blood 4.2 g/dL (2.2-4.0); Glucose, Blood 93 mg/dL (70-99); Potassium, Blood 5.0 mmol/L (3.5-5.5); Sodium, Blood 126 mmol/L (136-145); Total Protein, Blood 7.3 g/dL (6.4-8.2)
[2024-09-06] MEDS ORDERED: Ondansetron HCl 2 MG / ML 2ML Vial IV PRN (22:50)
[2024-09-06] MEDS ORDERED: Enoxaparin 40 MG/0.4 ML SYR SC SCH (23:00)
[2024-09-07 00:10] VITALS: BP 185/97
--- NOTE | 2024-09-07 00:40 | NUR ---
NEW ADMIT. PATIENT ADMITTED TO [facility] FROM THE ER FOR TIA. PATIENT ARRIVED TO ROOM VIA GURNEY AND 1P TRANSPORT. PATIENT ABLE TO STAND AND TRANSFER TO HOSPITAL BED FROM [facility] WITH MINIMAL ASSIST. PATIENT ARRIVED TO ROOM WITH SANDALS, WIG, PERSONAL CELL PHONE AND STREET CLOTHES. PATIENT INTRODUCED TO THIS RN AND FREDERICK BELTRE AND NOTIFIED THAT THIS RN AND FREDERICK BELTRE WOULD BE TAKING OVER PATIENT CARE FOR THE REST OF THE EVENING. PATIENT ORIENTED TO ROOM. THIS RN ASSUMED PATIENT CARE.
[2024-09-07] MEDS ORDERED: Bentyl20 MG (00:55)
[2024-09-07] MEDS ORDERED: HydrALAZINE HCl 20 MG / ML 1ML Vial IV PRN (03:25)
[2024-09-07 04:06] VITALS: BP 165/66
[2024-09-07 04:07] LABS: BASOPHILS ABSOLUTE AUTO 0.05 K/mm3 (0.00-0.23); BASOPHILS PERCENT AUTO 1 % (0-2); EOSINOPHILS ABSOLUTE AUTO 0.11 K/mm3 (0.00-0.68); EOSINOPHILS PERCENT AUTO 2 % (0-6); Hematocrit 41.2 % (33.0-51.0); Hemoglobin 14.3 g/dL (11.5-16.0); IMMATURE GRAN ABSOLUTE AUTO 0.01 K/mm3 (0.00-0.10); IMMATURE GRAN PERCENT AUTO 0 % (0-1); LYMPHOCYTES ABSOLUTE AUTO 2.15 K/mm3 (0.84-5.20); LYMPHOCYTES PERCENT AUTO 31 % (21-46); MONOCYTES ABSOLUTE AUTO 0.63 K/mm3 (0.16-1.47); MONOCYTES PERCENT AUTO 9 % (4-13); Mean Corpuscular HGB Conc 34.7 g/dL (31.5-36.5); Mean Corpuscular Volume 93 fL (80-100); NEUTROPHILS ABSOLUTE AUTO 4.03 K/mm3 (1.96-9.15); NEUTROPHILS PERCENT AUTO 58 % (41-73); NRBC ABSOLUTE 0.00 K/mm3 (0.00-0.02); NRBC Auto 0.0 /100 WBC (0.0-0.2); Platelet Count 299 K/mm3 (150-400); RDW Coefficient Variation 12.0 % (11.7-14.2); RDW Standard Deviation 41.4 fL (35.1-46.3)
--- NOTE | 2024-09-07 04:36 | NUR ---
SHIFT SUMMARY. PATIENT IS ALERT AND ORIENTED X4-ANSWERS ALL ORIENTATION QUESTIONS APPROPRIATELY BUT IS FORGETFUL TO DETAILS AT TIMES. PATIENT IS A 1P SBA TO THE BATHROOM WITH FWW WALKER. PATIENT IS ABLE TO EXPRESS NEEDS APPROPRIATELY, USES CALL LIGHT, AND IS COOPERATIVE WITH CARE. PATIENT PASSED BEDSIDE SWALLOW EVAL AND IS TOLERATING WATER W/O ISSUES-PATIENT DOES REPORT ISSUES WITH SWALLOWING AND THAT HER SPECIALIST WANTS HER TO HAVE A STUDY DONE IN REGARDS TO SWALLOWING BUT PATIENT DOES NOT RECALL WHAT STUDY. PATIENT HYPERTENSIVE T/O SHIFT-PRN ORDER IN FOR SBP >180-PATIENT REPORTS THAT SHE SEES A CUSTOMER DEVELOPMENT MANAGER OUTPATIENT. NO EVENTS NOTED OVER NIGHT PATIENT SLEPT OFF AND ON T/O SHIFT. BED IS LOCKED IN THE LOWEST POSITION WITH CALL LIGHT IN REACH.
[2024-09-07 09:20] VITALS: BP 139/81
[2024-09-07 11:27] LABS: Alanine Aminotransfer (ALT/SGP 18.0 U/L (12-78); Albumin, Blood 3.6 g/dL (3.4-5.0); Albumin/Globulin Ratio 0.9 (0.8-1.8); Anion Gap 11.0 mmol/L (3-11); Aspartate Aminotrans (AST/SGOT 23.0 U/L (12-37); Bilirubin, Total 0.6 mg/dL (0.1-1.0); Blood Urea Nitrogen 14.0 mg/dL (8-24); CO2, Blood 29.0 mmol/L (21-32); Calcium, Blood 9.2 mg/dL (8.5-10.1); Chloride, Blood 97.0 mmol/L (98-108); Creatinine, Blood 0.58 mg/dL (0.40-1.00); Globulin, Blood 3.9 g/dL (2.2-4.0); Glucose, Blood 100.0 mg/dL (70-99); Potassium, Blood 4.2 mmol/L (3.5-5.5); Sodium, Blood 133.0 mmol/L (136-145); Total Protein, Blood 7.5 g/dL (6.4-8.2)
[2024-09-07 13:00] VITALS: BP 166/99
[2024-09-07] MEDS ORDERED: ATOR80 PO (15:47)
[2024-09-07] MEDS ORDERED: Aspir 8181 MG PO (15:47)
[2024-09-07] MEDS ORDERED: CLOP75 PO (15:48)
--- NOTE | 2024-09-07 17:11 | NUR ---
DISCHARGE SUMMARY S/P TIA, A/OX4, VSS, TOLERATING PO THOUGH HER INTAKE WAS VERY LOW. SHE STATED THIS WAS DUE TO THE FOOD NOT TASTING GOOD. MRI DONE TODAY, DISCUSSED RESULTS WITH HER AND HER FAMILY WHO WERE AT THE BEDSIDE OFFERING REASSURANCE ABOUT GOING HOME. PIV WAS REMOVED BY THIS RN, TELEMETRY REMOVED, PT WAS ABLE TO GET HERSELF DRESSED. DISCUSSED DC INSTRUCTIONS INCLUDING HOME CARE, MEDICATIONS, AND FOLLOW UP APPOINTMENTS WHICH WILL BE WITH HER PCP. NO QUESTIONS AT THIS TIME, ESCORTED OUT VIA WC TO PRIVATE AUTO TO GO HOME.
== END 2024-09-07 16:44 | disposition home or self-care (01) ==
LOC: ER 18:24 → PCU 18:25 → MEDS 18:25 → ER 09-07 00:02 → PCU 09-07 00:08
PROVIDERS: Student in an Organized Health Care Education/Training Program; ADMIT Internal Medicine
DX: R47.81 Slurred speech (principal); H53.8 Other visual disturbances; R51.9 Headache, unspecified; I10 Essential (primary) hypertension; E87.1 Hypo-osmolality and hyponatremia; I65.23 Occlusion and stenosis of bilateral carotid arteries; J44.9 Chronic obstructive pulmonary disease, unspecified; G25.81 Restless legs syndrome; K21.9 Gastro-esophageal reflux disease without esophagitis; Z85.3 Personal history of malignant neoplasm of breast; Z87.891 Personal history of nicotine dependence; Z79.899 Other long term (current) drug therapy; Z88.8 Allergy status to other drugs, medicaments and biological substances; Z91.011 Allergy to milk products
CPT/HCPCS: 36415; 70450; 70496; 70498; 70551; 80053; 80320; 81003; 83880; 85025; 93005; 93010; 99285-25; A9270; G0378; J1650; Q9967

== ENCOUNTER 2024-09-20 17:15 | Inpatient (IN) | payer MEDICARE ==
[~2024-09-20] VITALS: Ht 154.9 cm; Wt 49.0 kg
[~2024-09-20 17:15] MED LIST changes: -ESCITALOPRAM OXA5 MG PO
[2024-09-20] MEDS ORDERED: Ondansetron HCl 2 MG / ML 2ML Vial IV ONE (22:25)
[2024-09-20 22:59] LABS: BASOPHILS ABSOLUTE AUTO 0.06 K/mm3 (0.00-0.23); BASOPHILS PERCENT AUTO 0 % (0-2); EOSINOPHILS ABSOLUTE AUTO 0.04 K/mm3 (0.00-0.68); EOSINOPHILS PERCENT AUTO 0 % (0-6); Hematocrit 35.1 % (33.0-51.0); Hemoglobin 12.3 g/dL (11.5-16.0); IMMATURE GRAN ABSOLUTE AUTO 0.05 K/mm3 (0.00-0.10); IMMATURE GRAN PERCENT AUTO 0 % (0-1); LYMPHOCYTES ABSOLUTE AUTO 1.37 K/mm3 (0.84-5.20); LYMPHOCYTES PERCENT AUTO 10 % (21-46); MONOCYTES ABSOLUTE AUTO 0.97 K/mm3 (0.16-1.47); MONOCYTES PERCENT AUTO 7 % (4-13); Mean Corpuscular HGB Conc 35.0 g/dL (31.5-36.5); Mean Corpuscular Volume 91 fL (80-100); NEUTROPHILS ABSOLUTE AUTO 11.07 K/mm3 (1.96-9.15); NEUTROPHILS PERCENT AUTO 82 % (41-73); NRBC ABSOLUTE 0.00 K/mm3 (0.00-0.02); NRBC Auto 0.0 /100 WBC (0.0-0.2); Platelet Count 283 K/mm3 (150-400); RDW Coefficient Variation 11.7 % (11.7-14.2); RDW Standard Deviation 39.2 fL (35.1-46.3)
[2024-09-20 23:50] LABS: Magnesium, Blood 1.8 mg/dL (1.6-2.4); Thyroid Stimulating Hormone 1.23 uIU/mL (0.360-4.800)
[2024-09-20 23:52] LABS: Source, Urine Clean Catch
[2024-09-21] LABS: Bilirubin, Urine Neg (Neg); Glucose Qualitative, Urine Neg (Neg); Ketones, Urine Neg (Neg); Leukocyte Esterase, Urine Neg (Neg); Protein, Urine 1+ (Neg); Specific Gravity, Urine 1.005 (1.003-1.022); Urobilinogen, Urine 1+ (Normal)
[2024-09-21 00:14] LABS: Color, Urine Yellow (P-Yellow)
[2024-09-21 00:37] LABS: Anion Gap 9.0 mmol/L (3-11); Blood Urea Nitrogen 10.0 mg/dL (8-24); CO2, Blood 26.0 mmol/L (21-32); Calcium, Blood 8.3 mg/dL (8.5-10.1); Chloride, Blood 91.0 mmol/L (98-108); Creatinine, Blood 0.45 mg/dL (0.40-1.00); Glucose, Blood 101.0 mg/dL (70-99); Potassium, Blood 3.5 mmol/L (3.5-5.5); Sodium, Blood 122.0 mmol/L (136-145)
[2024-09-21] MEDS ORDERED: NS 500 ML IV SCH (01:25)
[2024-09-21] MEDS ORDERED: HydrALAZINE HCl 20 MG / ML 1ML Vial IV PRN (02:25)
[2024-09-21] MEDS ORDERED: ESCITALOPRAM OXA5 MG PO (04:40)
[2024-09-21 06:17] LABS: BASOPHILS ABSOLUTE AUTO 0.05 K/mm3 (0.00-0.23); BASOPHILS PERCENT AUTO 0 % (0-2); EOSINOPHILS ABSOLUTE AUTO 0.06 K/mm3 (0.00-0.68); EOSINOPHILS PERCENT AUTO 0 % (0-6); Hematocrit 34.0 % (33.0-51.0); Hemoglobin 11.9 g/dL (11.5-16.0); IMMATURE GRAN ABSOLUTE AUTO 0.05 K/mm3 (0.00-0.10); IMMATURE GRAN PERCENT AUTO 0 % (0-1); LYMPHOCYTES ABSOLUTE AUTO 1.44 K/mm3 (0.84-5.20); LYMPHOCYTES PERCENT AUTO 11 % (21-46); MONOCYTES ABSOLUTE AUTO 1.15 K/mm3 (0.16-1.47); MONOCYTES PERCENT AUTO 9 % (4-13); Mean Corpuscular HGB Conc 35.0 g/dL (31.5-36.5); Mean Corpuscular Volume 91 fL (80-100); NEUTROPHILS ABSOLUTE AUTO 10.68 K/mm3 (1.96-9.15); NEUTROPHILS PERCENT AUTO 80 % (41-73); NRBC ABSOLUTE 0.00 K/mm3 (0.00-0.02); NRBC Auto 0.0 /100 WBC (0.0-0.2); Platelet Count 261 K/mm3 (150-400); RDW Coefficient Variation 11.8 % (11.7-14.2); RDW Standard Deviation 39.5 fL (35.1-46.3)
[2024-09-21 06:19] VITALS: BP 171/86
[2024-09-21 06:55] LABS: Alanine Aminotransfer (ALT/SGP 19.0 U/L (12-78); Albumin, Blood 2.6 g/dL (3.4-5.0); Albumin/Globulin Ratio 0.7 (0.8-1.8); Anion Gap 7.0 mmol/L (3-11); Aspartate Aminotrans (AST/SGOT 19.0 U/L (12-37); Bilirubin, Total 0.5 mg/dL (0.1-1.0); Blood Urea Nitrogen 7.0 mg/dL (8-24); CO2, Blood 30.0 mmol/L (21-32); Calcium, Blood 7.8 mg/dL (8.5-10.1); Chloride, Blood 95.0 mmol/L (98-108); Creatinine, Blood 0.41 mg/dL (0.40-1.00); Globulin, Blood 3.8 g/dL (2.2-4.0); Glucose, Blood 93.0 mg/dL (70-99); Potassium, Blood 3.7 mmol/L (3.5-5.5); Sodium, Blood 128.0 mmol/L (136-145); Thyroid Stimulating Hormone 0.56 uIU/mL (0.360-4.800); Total Protein, Blood 6.4 g/dL (6.4-8.2)
[2024-09-21 07:06] VITALS: BP 171/78
[2024-09-21 11:32] VITALS: BP 157/80
[2024-09-21] MEDS ORDERED: Enoxaparin 40 MG/0.4 ML SYR SC SCH (12:00)
--- NOTE | 2024-09-21 12:27 | NUR ---
ASSUMPTION OF CARE: THIS RN ASSUMED CARE OF PATIENT WITH ORIENTING JOLIE FERNANDEZ, MID-SHIFT, FROM [facility]. SITTING UP IN BED DURING ADMIT ASSESSMENT. TELE STRIP IN CHART READS SINUS @ 80s. BREATHING EVEN AND UNLABORED c RA. SL LAC. BED IN LOWEST POSITION. CALL LIGHT WITHIN REACH. ACUTE NEEDS MET.
[2024-09-21] MEDS ORDERED: Ondansetron 4 MG SoluTab MM PRN (15:15)
[2024-09-21 16:24] VITALS: BP 172/81
[2024-09-21 16:25] LABS: Anion Gap 8.0 mmol/L (3-11); Blood Urea Nitrogen 10.0 mg/dL (8-24); CO2, Blood 30.0 mmol/L (21-32); Calcium, Blood 8.2 mg/dL (8.5-10.1); Chloride, Blood 92.0 mmol/L (98-108); Creatinine, Blood 0.5 mg/dL (0.40-1.00); Glucose, Blood 121.0 mg/dL (70-99); Potassium, Blood 3.5 mmol/L (3.5-5.5); Sodium, Blood 126.0 mmol/L (136-145)
--- NOTE | 2024-09-21 17:20 | NUR ---
NO ACUTE CHANGES DURING THIS SHIFT. PLAN OF CARE ONGOING. WILL CONTINUE TO MONITOR.
--- NOTE | 2024-09-21 17:21 | NUR ---
SHIFT SUMMARY: NO ACUTE CHANGES DURING THIS SHIFT. PLAN OF CARE ONGOING. WILL CONTINUE TO MONITOR.
--- NOTE | 2024-09-21 17:34 | NUR ---
ALL NEW MEDICATIONS GIVEN BY AND ADMIT ASSESSMENT PERFORMED BY THIS RN. ALL OTHER TREATMENTS AND NURSING CARE PROVIDED BY JOLIE GARCIA LPN.
[2024-09-21 20:03] VITALS: BP 144/77
[2024-09-22] VITALS (11 sets, daily range): BP systolic 126–180; BP diastolic 76–109
--- NOTE | 2024-09-22 04:24 | NUR ---
SHIFT SUMMARY ADMITTED FOR HYPONATREMIA. FULL CODE. MONITORING LABS. TELEMETRY: NSR @ 69 BPM. SHE IS A&O X3, ON RA, CONTINENT, 1 ASSIST W/FWW - BRP. CARDIAC DIET. PT/OT/ST IS CONSULTED. ZIO PATCH IS STILL IN PLACE. DIETARY IS CONSULTED. SHE SLEPT WELL THROUGHOUT SHIFT. NO NEW CONCERNS.
[2024-09-22 05:08] LABS: BASOPHILS ABSOLUTE AUTO 0.05 K/mm3 (0.00-0.23); BASOPHILS PERCENT AUTO 0 % (0-2); EOSINOPHILS ABSOLUTE AUTO 0.11 K/mm3 (0.00-0.68); EOSINOPHILS PERCENT AUTO 1 % (0-6); Hematocrit 35.4 % (33.0-51.0); Hemoglobin 12.3 g/dL (11.5-16.0); IMMATURE GRAN ABSOLUTE AUTO 0.04 K/mm3 (0.00-0.10); IMMATURE GRAN PERCENT AUTO 0 % (0-1); LYMPHOCYTES ABSOLUTE AUTO 1.25 K/mm3 (0.84-5.20); LYMPHOCYTES PERCENT AUTO 11 % (21-46); MONOCYTES ABSOLUTE AUTO 0.95 K/mm3 (0.16-1.47); MONOCYTES PERCENT AUTO 8 % (4-13); Mean Corpuscular HGB Conc 34.7 g/dL (31.5-36.5); Mean Corpuscular Volume 92 fL (80-100); NEUTROPHILS ABSOLUTE AUTO 9.45 K/mm3 (1.96-9.15); NEUTROPHILS PERCENT AUTO 80 % (41-73); NRBC ABSOLUTE 0.00 K/mm3 (0.00-0.02); NRBC Auto 0.0 /100 WBC (0.0-0.2); Platelet Count 297 K/mm3 (150-400); RDW Coefficient Variation 11.8 % (11.7-14.2); RDW Standard Deviation 39.8 fL (35.1-46.3)
[2024-09-22 05:40] LABS: Anion Gap 6.0 mmol/L (3-11); Blood Urea Nitrogen 10.0 mg/dL (8-24); CO2, Blood 31.0 mmol/L (21-32); Calcium, Blood 8.2 mg/dL (8.5-10.1); Chloride, Blood 92.0 mmol/L (98-108); Creatinine, Blood 0.44 mg/dL (0.40-1.00); Glucose, Blood 98.0 mg/dL (70-99); Potassium, Blood 4.0 mmol/L (3.5-5.5); Sodium, Blood 125.0 mmol/L (136-145)
--- NOTE | 2024-09-22 11:57 | NUR ---
CALL FROM [facility]: PT HAD RUN OF SVT. PT WITHOUT C/O CP OR ILL-FEELING. V/S OBTAINED. DR HDZ NOTIFIED: T.O. TO ADD MAG AND PHOS TO THIS MORNING'S LABS IF STILL AVAILABLE.
[2024-09-22 12:26] LABS: Magnesium, Blood 1.7 mg/dL (1.6-2.4); Phosphorus, Blood 1.9 mg/dL (2.5-4.9)
[2024-09-22] MEDS ORDERED: HydrALAZINE HCl 20 MG / ML 1ML Vial IV ONE (14:15)
[2024-09-22] MEDS ORDERED: Labetalol HCL 5 MG/ML 4ML Injection (Single Dose) IV PRN (15:55)
--- NOTE | 2024-09-22 17:27 | NUR ---
PATIENT USED CALL LIGHT AND REPORTED C/O DYSPNEA, SOB AND LEFT-SIDED CHEST PAIN JUST BELOW BREAST, DESCRIBED FEELING LIKE SHE'S BEING STABBED BY A NEEDLE. V/S OBTAINED. TACHY c REGULAR RHYTHM. BIBASILAR CRACKLES. TELE REPORTED ST ELEVATION. EKG COMPLETED AND WAS UNCHANGED FROM ADMITTING EKG. NOTED TO BE DIAPHORETIC. PROVIDER NOTIFIED AND PLACED ORDER FOR CXR, D-DIMER AND BNP.
--- NOTE | 2024-09-22 18:24 | NUR ---
END OF SHIFT SUMMARY: A&Ox4. PLEASANT AND COOPERATIVE WITH CARE. CALLS APPROPRIATELY AND IS ABLE TO ADVOCATE NEEDS EFFECTIVELY. CONTINENT OF BOWEL AND BLADDER; SMALL BOWEL MOVEMENT TODAY. AMBULATES 1PA c FWW. MEDS WHOLE BVZ-TY-D-TIME. TELE SINUS MOST OF DAY. DID HAVE 10-BEAT RUN OF V-TACH FOR WHICH PROVIDER ORDERED PHOS AND MAG LEVEL. LATER BEGAN c C / O SUDDEN ONSET CHEST PAIN BELOW LEFT BREAST ACCOMPANIED BY DYSPNEA AND SOB. VSS. MAINTAINING SPO2 >92% ON RA. CXR SHOWED GASEOUS DISTENTION INTO COLON FOR WHICH PROVIDER ORDERED SIMETHICON. D-DIMER, TROPS AND BNP ONLY SLIGHTLY ELEVATED. BED IN LOWEST POSITION, CALL LIGHT WITHIN REACH, ALL NEEDS MET. REPORT TO ONCOMING NURSE.
[2024-09-23] VITALS (8 sets, daily range): BP systolic 113–186; BP diastolic 71–98
--- NOTE | 2024-09-23 04:05 | NUR ---
SHIFT SUMMARY ADMITTED FOR HYPONATREMIA. FULL CODE. TELEMETRY: NSR @ 82 BPM. NO REPORTED EVENTS OR CHEST PAIN THIS SHIFT SO FAR. SHE IS A&O X3, ON RA. 1 ASSIST W/FWW - BRP. SHE IS STILL VERY WEAK. CARDIAC DIET. NAUSEA MEDICATION GIVEN THIS SHIFT WITH GOOD EFFECT. PT/OT/ST ARE ORDERED.
[2024-09-23 05:11] LABS: BASOPHILS ABSOLUTE AUTO 0.05 K/mm3 (0.00-0.23); BASOPHILS PERCENT AUTO 1 % (0-2); EOSINOPHILS ABSOLUTE AUTO 0.08 K/mm3 (0.00-0.68); EOSINOPHILS PERCENT AUTO 1 % (0-6); Hematocrit 31.7 % (33.0-51.0); Hemoglobin 11.3 g/dL (11.5-16.0); IMMATURE GRAN ABSOLUTE AUTO 0.03 K/mm3 (0.00-0.10); IMMATURE GRAN PERCENT AUTO 0 % (0-1); LYMPHOCYTES ABSOLUTE AUTO 1.31 K/mm3 (0.84-5.20); LYMPHOCYTES PERCENT AUTO 13 % (21-46); MONOCYTES ABSOLUTE AUTO 0.69 K/mm3 (0.16-1.47); MONOCYTES PERCENT AUTO 7 % (4-13); Mean Corpuscular HGB Conc 35.6 g/dL (31.5-36.5); Mean Corpuscular Volume 90 fL (80-100); NEUTROPHILS ABSOLUTE AUTO 7.94 K/mm3 (1.96-9.15); NEUTROPHILS PERCENT AUTO 79 % (41-73); NRBC ABSOLUTE 0.00 K/mm3 (0.00-0.02); NRBC Auto 0.0 /100 WBC (0.0-0.2); Platelet Count 289 K/mm3 (150-400); RDW Coefficient Variation 11.7 % (11.7-14.2); RDW Standard Deviation 38.6 fL (35.1-46.3)
[2024-09-23 05:40] LABS: Anion Gap 8.0 mmol/L (3-11); Blood Urea Nitrogen 10.0 mg/dL (8-24); CO2, Blood 30.0 mmol/L (21-32); Calcium, Blood 7.6 mg/dL (8.5-10.1); Chloride, Blood 92.0 mmol/L (98-108); Creatinine, Blood 0.38 mg/dL (0.40-1.00); Glucose, Blood 98.0 mg/dL (70-99); Potassium, Blood 3.6 mmol/L (3.5-5.5); Sodium, Blood 126.0 mmol/L (136-145)
[2024-09-23] MEDS ORDERED: Furosemide 10 MG / ML 2ML Vial IV SCH (07:00)
--- NOTE | 2024-09-23 09:10 | NUR ---
ASSUMPTION OF CARE: THIS RN ASSUMED CARE OF PATIENT FOR THIRD DAY. ACCOMPANIED BY ORIENTING SHAQ FERNANDEZ. ASLEEP DURING SHIFT CHANGE REPORT. LYING IN BED c HOB ELEVATED. BREATHING EVEN AND UNLABORED c ROOM AIR. MOST RECENT TELE STRIP IN CHART READS SINUS @ 71bpm. BED IN LOWEST POSITION. CALL LIGHT WITHIN REACH. ACUTE NEEDS MET.
[2024-09-23 13:28] LABS: Anion Gap 9.0 mmol/L (3-11); Blood Urea Nitrogen 14.0 mg/dL (8-24); CO2, Blood 30.0 mmol/L (21-32); Calcium, Blood 8.3 mg/dL (8.5-10.1); Chloride, Blood 91.0 mmol/L (98-108); Creatinine, Blood 0.53 mg/dL (0.40-1.00); Glucose, Blood 117.0 mg/dL (70-99); Potassium, Blood 3.6 mmol/L (3.5-5.5); Sodium, Blood 126.0 mmol/L (136-145)
--- NOTE | 2024-09-23 17:58 | NUR ---
SHIFT SUMMARY: A&OX4 THIS SHIFT. PLEASANT AND COOPERATIVE WITH CARE. AMBULATORY AROUND ROOM AND TO BATHROOM WITH A SBA AND FWW. PT REMAINS ON ROOM AIR WITH O2 SATS >90%. SHORTNESS OF BREATH SEEN WHEN AMBULATING, BUT DENIES SOB WHEN AT BREATH. DENIES CHEST PAIN AND/ OR DISCOMFORT. PT HAD ONE TELE EVENT THIS SHIFT WITH ST CHANGES. VITAL SIGNS REMAINED STABLE DURING EVENT AND T/O REST OF SHIFT. PT IS LYING IN BED WITH HOB ELEVATED AT THIS TIME. BED IN THE LOWEST POSITION. CALL LT WITHIN REACH.
--- NOTE | 2024-09-23 18:45 | NUR ---
NEW MEDS AND TELE STRIPS REVIEWED BY THIS RN.
--- NOTE | 2024-09-23 23:57 | NUR ---
PT'S SPOUSE REPORTED PT "NOT FEELING WELL; MORE WEAK THAN EVER". PT REPORTS NAUSEA AND LIGHTHEADEDNESS. BP 180/89, OTHER VS WNL. MANAGER INSIDE REPORTS NO CHANGES, NSR WITH HR 83. PRN HYDRALAZINE AND ZOFRAN GIVEN, CONTINUING TO MONITOR.
[2024-09-24] VITALS (7 sets, daily range): BP systolic 139–178; BP diastolic 71–99
[2024-09-24 05:27] LABS: BASOPHILS ABSOLUTE AUTO 0.04 K/mm3 (0.00-0.23); BASOPHILS PERCENT AUTO 0 % (0-2); EOSINOPHILS ABSOLUTE AUTO 0.14 K/mm3 (0.00-0.68); EOSINOPHILS PERCENT AUTO 1 % (0-6); Hematocrit 33.2 % (33.0-51.0); Hemoglobin 11.7 g/dL (11.5-16.0); IMMATURE GRAN ABSOLUTE AUTO 0.02 K/mm3 (0.00-0.10); IMMATURE GRAN PERCENT AUTO 0 % (0-1); LYMPHOCYTES ABSOLUTE AUTO 1.40 K/mm3 (0.84-5.20); LYMPHOCYTES PERCENT AUTO 14 % (21-46); MONOCYTES ABSOLUTE AUTO 0.85 K/mm3 (0.16-1.47); MONOCYTES PERCENT AUTO 9 % (4-13); Mean Corpuscular HGB Conc 35.2 g/dL (31.5-36.5); Mean Corpuscular Volume 90 fL (80-100); NEUTROPHILS ABSOLUTE AUTO 7.32 K/mm3 (1.96-9.15); NEUTROPHILS PERCENT AUTO 75 % (41-73); NRBC ABSOLUTE 0.00 K/mm3 (0.00-0.02); NRBC Auto 0.0 /100 WBC (0.0-0.2); Platelet Count 311 K/mm3 (150-400); RDW Coefficient Variation 11.7 % (11.7-14.2); RDW Standard Deviation 38.5 fL (35.1-46.3)
[2024-09-24 05:56] LABS: Anion Gap 6.0 mmol/L (3-11); Blood Urea Nitrogen 10.0 mg/dL (8-24); CO2, Blood 30.0 mmol/L (21-32); Calcium, Blood 8.0 mg/dL (8.5-10.1); Chloride, Blood 92.0 mmol/L (98-108); Creatinine, Blood 0.45 mg/dL (0.40-1.00); Glucose, Blood 105.0 mg/dL (70-99); Potassium, Blood 3.7 mmol/L (3.5-5.5); Sodium, Blood 124.0 mmol/L (136-145)
--- NOTE | 2024-09-24 06:42 | NUR ---
SHIFT SUMMARY PT A/Ox4, SBP 140-180, OTHER VSS ON RA. TELE IN PLACE, NSR. PRN HYDRALAZINE GIVEN X 1 FOR SBP 180. PT REPORTS NAUSEA, ZOFRAN EFFECTIVE. PT UP TO CHAIR AND COMMODE WITH 1P ASSIST AND FWW; PT TOLERATES WELL HOWEVER REPORTS GENERALIZED WEAKNESS. PT DENIES PAIN, SOB OR OTHER COMPLAINTS. SAFETY PRECAUTIONS IN PLACE, CALL LIGHT IN REACH.
[2024-09-24 08:11] LABS: Osmolality, Serum 262.0 mos/KG (275-300)
[2024-09-24 08:21] LABS: Sodium, Blood 126.0 mmol/L (136-145); Thyroid Stimulating Hormone 0.7 uIU/mL (0.360-4.800); Uric Acid, Blood 2.2 mg/dL (2.6-6.0)
--- NOTE | 2024-09-24 12:35 | NUR ---
PROVIDER ORDERS: SPOKE WITH DR MOLINA IN THE HALLWAY. VERBAL INSTRUCTION TO ADMINISTER 2 TABS OF SODIUM CHLORIDE NOW AND TO PLACE AN ORDER FOR A LAB DRAW AT 1430. ORDERS PLACED IN COMPUTER. CARE CONTINUES.
--- NOTE | 2024-09-24 14:48 | NUR ---
PROVIDER CONTACT: SPOKE WITH DR MOLINA VIA TELEPHONE REGARDING SODIUM RESULTS REQUESTED. VERBAL ORDER TO DISPENSE ADDITIONAL DOSE TO PT. CARE CONTINUES.
--- NOTE | 2024-09-24 16:33 | NUR ---
A&OX4 THROUGHOUT SHIFT. PT FLUID RESTRICTION REDUCED TO 1L PER DR MOLINA. NO ACUTE EVENTS THIS SHIFT. BREATHING EQUAL AND UNLABORED. DENIES CHEST PAIN AND/OR DISCOMFORT. PT TRANSFERED TO ROOM 324 WITH BELONGINGS. REPORT GIVEN TO EILEEN WALTERS.
[2024-09-25] VITALS (10 sets, daily range): BP systolic 126–200; BP diastolic 77–100
[2024-09-25 05:37] LABS: BASOPHILS ABSOLUTE AUTO 0.06 K/mm3 (0.00-0.23); BASOPHILS PERCENT AUTO 1 % (0-2); EOSINOPHILS ABSOLUTE AUTO 0.16 K/mm3 (0.00-0.68); EOSINOPHILS PERCENT AUTO 2 % (0-6); Hematocrit 35.9 % (33.0-51.0); Hemoglobin 12.5 g/dL (11.5-16.0); IMMATURE GRAN ABSOLUTE AUTO 0.01 K/mm3 (0.00-0.10); IMMATURE GRAN PERCENT AUTO 0 % (0-1); LYMPHOCYTES ABSOLUTE AUTO 1.78 K/mm3 (0.84-5.20); LYMPHOCYTES PERCENT AUTO 21 % (21-46); MONOCYTES ABSOLUTE AUTO 0.78 K/mm3 (0.16-1.47); MONOCYTES PERCENT AUTO 9 % (4-13); Mean Corpuscular HGB Conc 34.8 g/dL (31.5-36.5); Mean Corpuscular Volume 92 fL (80-100); NEUTROPHILS ABSOLUTE AUTO 5.68 K/mm3 (1.96-9.15); NEUTROPHILS PERCENT AUTO 67 % (41-73); NRBC ABSOLUTE 0.00 K/mm3 (0.00-0.02); NRBC Auto 0.0 /100 WBC (0.0-0.2); Platelet Count 337 K/mm3 (150-400); RDW Coefficient Variation 11.9 % (11.7-14.2); RDW Standard Deviation 40.0 fL (35.1-46.3)
[2024-09-25 06:03] LABS: Magnesium, Blood 1.6 mg/dL (1.6-2.4)
[2024-09-25 06:04] LABS: Albumin, Blood 2.7 g/dL (3.4-5.0); Anion Gap 8 mmol/L (3-11); Blood Urea Nitrogen 9 mg/dL (8-24); CO2, Blood 31 mmol/L (21-32); Calcium, Blood 8.6 mg/dL (8.5-10.1); Chloride, Blood 95 mmol/L (98-108); Creatinine, Blood 0.43 mg/dL (0.40-1.00); Glucose, Blood 102 mg/dL (70-99); Phosphorus, Blood 3.1 mg/dL (2.5-4.9); Potassium, Blood 3.6 mmol/L (3.5-5.5); Sodium, Blood 130 mmol/L (136-145)
--- NOTE | 2024-09-25 06:11 | NUR ---
SHIFT SUMMARY; PATIENT SLEPT IN LONG INTERVALS, SPOUSE SLEPT IN ROOM ALL NIGHT. HAD PRN HYDRALAZINE 10 MG X 1. UP TO BR WITH SBA/FWW. HAS BEEN ON ROOM AIR ALL NIGHT, ALTHOUGH SHE STATES SHE USUALLY IS ON 3L/NC SATS HAVE BEEN MORE THAN ADEQUATE. TELE SR74.
--- NOTE | 2024-09-25 18:13 | NUR ---
SHIFT SUMMARY: NO NEW OR ACUTE CHANGES DURING THIS SHIFT. PLAN TO CONTINUE MONITORING SODIUM LEVELS. PATIENT CURRENTLY ON TELE RUNNING NSR. PATIENT PLEASANT AND COOPERATIVE THROUGHOUT THIS SHIFT. PLAN OF CARE ONGOING AT THIS TIME. WILL CONTINUE TO MONITOR.
[2024-09-26 04:20] VITALS: BP 184/82
[2024-09-26 04:52] VITALS: BP 170/83
[2024-09-26 05:03] LABS: BASOPHILS ABSOLUTE AUTO 0.07 K/mm3 (0.00-0.23); BASOPHILS PERCENT AUTO 1 % (0-2); EOSINOPHILS ABSOLUTE AUTO 0.24 K/mm3 (0.00-0.68); EOSINOPHILS PERCENT AUTO 3 % (0-6); Hematocrit 36.1 % (33.0-51.0); Hemoglobin 12.8 g/dL (11.5-16.0); IMMATURE GRAN ABSOLUTE AUTO 0.03 K/mm3 (0.00-0.10); IMMATURE GRAN PERCENT AUTO 0 % (0-1); LYMPHOCYTES ABSOLUTE AUTO 1.86 K/mm3 (0.84-5.20); LYMPHOCYTES PERCENT AUTO 26 % (21-46); MONOCYTES ABSOLUTE AUTO 0.69 K/mm3 (0.16-1.47); MONOCYTES PERCENT AUTO 10 % (4-13); Mean Corpuscular HGB Conc 35.5 g/dL (31.5-36.5); Mean Corpuscular Volume 90 fL (80-100); NEUTROPHILS ABSOLUTE AUTO 4.20 K/mm3 (1.96-9.15); NEUTROPHILS PERCENT AUTO 59 % (41-73); NRBC ABSOLUTE 0.00 K/mm3 (0.00-0.02); NRBC Auto 0.0 /100 WBC (0.0-0.2); Platelet Count 328 K/mm3 (150-400); RDW Coefficient Variation 11.8 % (11.7-14.2); RDW Standard Deviation 38.8 fL (35.1-46.3)
[2024-09-26 05:23] LABS: Albumin, Blood 2.8 g/dL (3.4-5.0); Anion Gap 8 mmol/L (3-11); Blood Urea Nitrogen 8 mg/dL (8-24); CO2, Blood 29 mmol/L (21-32); Calcium, Blood 8.5 mg/dL (8.5-10.1); Chloride, Blood 95 mmol/L (98-108); Creatinine, Blood 0.42 mg/dL (0.40-1.00); Glucose, Blood 103 mg/dL (70-99); Magnesium, Blood 1.5 mg/dL (1.6-2.4); Phosphorus, Blood 3.2 mg/dL (2.5-4.9); Potassium, Blood 3.4 mmol/L (3.5-5.5); Sodium, Blood 129 mmol/L (136-145)
[2024-09-26] MEDS ORDERED: Mag Sulfate 1 GM/D5% 100ML 100 ML IV STA (06:59)
[2024-09-26 07:14] VITALS: BP 150/79
[2024-09-26] MEDS ORDERED: NS 250 ML IV PRN (08:50)
[2024-09-26] MEDS ORDERED: Potassium Chloride 10 Meq Tablet SA PO SCH (09:00)
[2024-09-26 11:14] VITALS: BP 129/69
[2024-09-26 16:37] VITALS: BP 140/92
--- NOTE | 2024-09-26 18:12 | NUR ---
SHIFT SUMMARY: PT A&O X4. PLEASANT AND COOPERATIVE WITH CARE. 1PA c FWW AND GB. PT SODIUM LOW THIS AM OF 129. EXTRA 2G SODIUM CHLORIDE PROVIDED WITH AM MEDICATIONS. ORDERS PER DR. MOLINA FOR REAPEAT SODIUM LAB @ 1300 AND TO CALL WITH RESULTS BY 1400. BREAK NURSE CALLED DR. MOLINA WITH RESULTS WHILE THIS RN WAS ON LUNCH. DR. AGEE WOULD LIKE PT TO HAVE SYSTOLIC BP BELOW 150 CONSISTENTLY IN ORDER TO DISCHARGE. PT HAD BP OF 154/70 POST WALK THIS ATERNOON. SPOKE WITH DR. AGEE STATING PT WOULD LIKE TO WAIT ONE MORE DAY TO D/C. PT ON 1L FLUID RESTRICTION. TELE IN PLACE RUNNING SINUS RHYHTM IN THE 60'S. CALL LIGHT IN REACH. BED IN LOWEST POSITION.
[2024-09-26 20:39] VITALS: BP 164/79
[2024-09-27 00:06] VITALS: BP 154/89
[2024-09-27 05:13] VITALS: BP 150/100
[2024-09-27 05:57] LABS: Hematocrit 34.7 % (33.0-51.0); Hemoglobin 11.8 g/dL (11.5-16.0)
[2024-09-27 06:13] LABS: Albumin, Blood 2.6 g/dL (3.4-5.0); Anion Gap 6 mmol/L (3-11); Blood Urea Nitrogen 8 mg/dL (8-24); CO2, Blood 30 mmol/L (21-32); Calcium, Blood 8.3 mg/dL (8.5-10.1); Chloride, Blood 99 mmol/L (98-108); Creatinine, Blood 0.42 mg/dL (0.40-1.00); Glucose, Blood 91 mg/dL (70-99); Magnesium, Blood 1.6 mg/dL (1.6-2.4); Phosphorus, Blood 2.7 mg/dL (2.5-4.9); Potassium, Blood 4.1 mmol/L (3.5-5.5); Sodium, Blood 131 mmol/L (136-145)
--- NOTE | 2024-09-27 06:29 | NUR ---
SUMMARY ALERT & ORIENTED. VSS EXCEPT FOR SBP STILL EXCEEDING 150. BLOOD NA LEVEL STILL AT 130. WITH MILD WEAKNESS / DIZINESS BUT TOLERATES AMBULATION WELL WITH A FWW. PRN LABETALOL NOT GIVEN AT 2029 BECAUSE OF DUE ANTI-HPN MEDS. ADHERENT TO 1L FLUID RESTRICTION PER DAY. NOT IN PAIN OR ANY DISTRESS, ABLE TO SLEEP GOOD ENOUGH AT NIGHT.
[2024-09-27 07:20] VITALS: BP 152/78
[2024-09-27] MEDS ORDERED: FURO20 PO (12:09)
[2024-09-27] MEDS ORDERED: POTA10T PO (12:09)
[2024-09-27] MEDS ORDERED: AMLO5 PO (12:09)
[2024-09-27] MEDS ORDERED: SODCHL1 PO (12:10)
--- NOTE | 2024-09-27 13:50 | NUR ---
DISCHARGE SUMMARY: A&Ox4. PLEASANT AND COOPERATIVE WITH CARE. CALLS APPROPRIATELY AND IS ABLE TO ADVOCATE NEEDS EFFECTIVELY. AMBULATES INDEPENDENTLY c FWW; NEW WALKER DELIVERED BY [facility], TODAY. CONTINENT OF BOWEL AND BLADDER; LBM THIS MORNING. TAKES MEDS [id number]-[id number]-TIME, WHOLE c FLUIDS. TELE SINUS. NO C/O PAIN OR DISCOMFORT. PATIENT PROVIDED WITH COPY OF DISCHARGE PLAN AND MEDICATION LIST. MED REC FAXED TO [facility] c REQUEST TO FILL "Rx NEEDED" SCRIPTS AND A REQUEST TO SEND ANY PA REQUESTS TO PCP. INSTRUCTED TO FOLLOW-UP WITH DR MOLINA'S OFFICE IN 1-2 DAYS AND c PCP ON FRIDAY @ 1000.ALL QUESTIONS ANSWERED TO THIS NURSE'S ABILITY AND PATIENT VOICED UNDERSTANDING OF DISCHARGE PLAN. IV REMOVED AND PRESSURE DRESSING PLACED. LEFT FLOOR WITH ALL BELONGINGS AND DISCHARGE PACKET, ESCORTED BY THIS RN. TRANSPORTATION PROVIDED BY VIA POV c PLANS FOR HH.
== END 2024-09-27 13:25 | disposition home or self-care (01) | DRG 641 ==
LOC: ER 17:15 → ERHOLD 09-21 01:43 → MEDS 09-21 01:43
PROVIDERS: Emergency Medicine; Internal Medicine; Internal Medicine Nephrology; Student in an Organized Health Care Education/Training Program; ADMIT Student in an Organized Health Care Education/Training Program
DX: E87.1 Hypo-osmolality and hyponatremia (principal); J84.9 Interstitial pulmonary disease, unspecified; J44.9 Chronic obstructive pulmonary disease, unspecified; E88.09 Other disorders of plasma-protein metabolism, not elsewhere classified; G25.81 Restless legs syndrome; I12.9 Hypertensive chronic kidney disease with stage 1 through stage 4 chronic kidney disease, or unspecified chronic kidney disease; R79.89 Other specified abnormal findings of blood chemistry; D63.1 Anemia in chronic kidney disease; N18.1 Chronic kidney disease, stage 1; D72.829 Elevated white blood cell count, unspecified; R13.10 Dysphagia, unspecified; E87.6 Hypokalemia; G47.00 Insomnia, unspecified; E83.42 Hypomagnesemia; R53.1 Weakness; Z88.8 Allergy status to other drugs, medicaments and biological substances; Z91.011 Allergy to milk products; Z86.73 Personal history of transient ischemic attack (TIA), and cerebral infarction without residual deficits; Z79.899 Other long term (current) drug therapy; Z79.82 Long term (current) use of aspirin; Z85.3 Personal history of malignant neoplasm of breast; Z90.89 Acquired absence of other organs; Z87.828 Personal history of other (healed) physical injury and trauma; Z87.891 Personal history of nicotine dependence; Z87.01 Personal history of pneumonia (recurrent); Z99.81 Dependence on supplemental oxygen
CPT/HCPCS: 36415; 36416; 71045; 71260; 74177; 80048; 80053; 80069; 82533; 82607; 82746; 83735; 83880; 83930; 83935; 84100; 84145; 84295; 84300; 84439; 84443; 84484; 84550; 85014; 85018; 85025; 85379; 92526; 92610; 93005; 93010; 93970; 96374; 97110; 97116; 97162; 97165; 97530; 97535; 99285-25; A9270; J0360; J1650; J1938; J2405; J2470; J3475; J7030; J7050; Q9967

== ENCOUNTER → 2024-09-20 | Outpatient (CLI) | payer MEDICARE ==
[~2024-09-20] MED LIST changes: +ASPI81CH PO; +ATOR80 PO; +Bentyl20 MG; +CLOP75 PO; +ESCITALOPRAM OXA5 MG PO; -MIRAPEX ER0.75 MG PO; +MIRAPEX0.75 M1 PO; -PANT20
[2024-09-20 16:11] LABS: BASOPHILS ABSOLUTE AUTO 0.04 K/mm3 (0.00-0.23); BASOPHILS PERCENT AUTO 0 % (0-2); EOSINOPHILS ABSOLUTE AUTO 0.09 K/mm3 (0.00-0.68); EOSINOPHILS PERCENT AUTO 1 % (0-6); Hematocrit 36.5 % (33.0-51.0); Hemoglobin 13.0 g/dL (11.5-16.0); IMMATURE GRAN ABSOLUTE AUTO 0.04 K/mm3 (0.00-0.10); IMMATURE GRAN PERCENT AUTO 0 % (0-1); LYMPHOCYTES ABSOLUTE AUTO 1.61 K/mm3 (0.84-5.20); LYMPHOCYTES PERCENT AUTO 12 % (21-46); MONOCYTES ABSOLUTE AUTO 1.01 K/mm3 (0.16-1.47); MONOCYTES PERCENT AUTO 8 % (4-13); Mean Corpuscular HGB Conc 35.6 g/dL (31.5-36.5); Mean Corpuscular Volume 89 fL (80-100); NEUTROPHILS ABSOLUTE AUTO 10.18 K/mm3 (1.96-9.15); NEUTROPHILS PERCENT AUTO 79 % (41-73); NRBC ABSOLUTE 0.00 K/mm3 (0.00-0.02); NRBC Auto 0.0 /100 WBC (0.0-0.2); Platelet Count 284 K/mm3 (150-400); RDW Coefficient Variation 11.7 % (11.7-14.2); RDW Standard Deviation 37.9 fL (35.1-46.3)
[2024-09-20 16:20] LABS: Alanine Aminotransfer (ALT/SGP 24.0 U/L (12-78); Albumin, Blood 3.2 g/dL (3.4-5.0); Albumin/Globulin Ratio 0.7 (0.8-1.8); Anion Gap 10.0 mmol/L (6-16); Aspartate Aminotrans (AST/SGOT 22.0 U/L (12-37); Bilirubin, Total 0.8 mg/dL (0.1-1.0); Blood Urea Nitrogen 13.0 mg/dL (8-24); CO2, Blood 30.0 mmol/L (21-32); Calcium, Blood 9.0 mg/dL (8.5-10.1); Chloride, Blood 89.0 mmol/L (98-108); Creatinine, Blood 0.69 mg/dL (0.40-1.00); Globulin, Blood 4.3 g/dL (2.2-4.0); Glucose, Blood 99.0 mg/dL (70-99); Potassium, Blood 4.0 mmol/L (3.5-5.5); Sodium, Blood 125.0 mmol/L (136-145); Total Protein, Blood 7.5 g/dL (6.4-8.2)
== END | disposition home or self-care (01) ==
LOC: LAB 16:06 → LAB SHORT 16:06
PROVIDERS: Physician Assistant
DX: R06.02 Shortness of breath (principal); R60.0 Localized edema
CPT/HCPCS: 80053; 83880; 85025; 85379